=== PATIENT | female | born 1930 | race Caucasian/White ===

== ENCOUNTER 2017-04-30 09:46 | Emergency (ER) | payer OTHER, BC ==
[~2017-04-30] VITALS: Ht 162.6 cm; Wt 66.1 kg
[~2017-04-30 09:46] MED LIST: ALDACTONE25 MG PO; ALDACTONE50 MG PO; ALTACE10 MG PO; AMLODIPINE BESY10 MG PO; Aspirin Chewable PO; CATAPRES0.1 MG PO; CLONIDINE HCL0.1 MG PO; CLONIDINE HCL0.2 MG PO; FERROUS SULFAT325 MG PO; FISH OIL 1,0001 EAC7 PO; FISH OIL CONC1 EACH; FISH OIL PO; GLIPIZIDE-METF1 EAC1 PO; GLUCOVANCE 51 TABLET PO; HYDRALAZINE HCL25 MG PO; LANTUS 3 M100 UNITS/ SC; LANTUS 3 M100 UNITS1 SQ; LEXAPRO5 MG PO; LO-DOSE ASPIRIN81 M1 PO; LOVASTATIN40 MG PO; LOW DOSE ASPIRI81 M1; MAG-OX400 M1 PO; NOVOLOG PE100 UNITS/ SC; NOVOLOG PE100 UNITS/ SQ; PROTONIX40 MG PO; RAMIPRIL10 MG PO; SPIRONOLACTONE25 MG PO; SYSTANE 0.300 DROP/1; TOPROL XL100 MG PO; VITAMIN D1000 INTUN PO; VITAMIN D31000 UNIT PO; VITAMIN D400 UNI4
[2017-04-30 10:22] LABS: BASOPHIL COUNT 0.1 K/uL (0-0.1); EOSINOPHIL (%) 4.5 % (0-5); EOSINOPHIL COUNT 0.5 K/uL (0-0.3); HEMATOCRIT 40.2 % (36.0-46.0); IMMATURE GRANULOCYTE (%) 0.2 % (0.0-0.7); INSTRUMENT ABS NEUTROPHIL CT 6.4 K/uL; LYMPHOCYTE COUNT 2.1 K/uL (1.0-2.8); MCHC 32.3 G/DL (30.0-36.0); MCV 89.7 FL (83-99); MEAN PLAT.VOLUME 10.5 uM^3 (9.5-12.4); MONOCYTE (%) 9.7 % (3-12); NEUTROPHIL (%) 64.3 % (45-76); NEUTROPHIL COUNT 6.4 K/uL (1.8-6.4); PLATELET COUNT 230 K/uL (156-360); RBC DIS.WIDTH-CV 13.3 % (11.8-14.6); RBC DIS.WIDTH-SD 44.1 % (39-53); RED BLOOD COUNT 4.48 M/uL (3.80-5.20)
[2017-04-30 10:33] LABS: CHLORIDE 101 mEq/L (99-109); POTASSIUM 3.9 mEq/L (3.7-5.4); SODIUM 142 mEq/L (136-147)
[2017-04-30 10:36] LABS: GLUCOSE 113 mg/dL (70-99)
[2017-04-30 10:37] LABS: ANION GAP 9 MEQ/L (2-14)
[2017-04-30 10:38] LABS: TOTAL BILIRUBIN 0.3 mg/dL (0.0-1.0)
[2017-04-30 10:39] LABS: ALKALINE PHOSPHATASE 66 IU/L (3-129); GFR ESTIMATE (CALCULATED) 45 mL/min/
[2017-04-30 10:40] LABS: UREA NITROGEN (BUN) 17 mg/dL (9-23)
[2017-04-30 10:42] LABS: TROP-I INTERPRETATION NEGATIVE; TROPONIN-I 0.01 ng/mL (0.0-0.30)
[2017-04-30 11:10] LABS: ADD MIUA? YES; BILIRUBIN NEGATIVE; BLOOD NEGATIVE; COLOR YELLOW ((YELLOW)); GLUCOSE (STRIP) 50; KETONES NEGATIVE; LEUKOCYTES TRACE; NITRITE NEGATIVE; PROTEIN (STRIP) 30; SPECIFIC GRAVITY 1.017 (1.000-1.030); UROBILINOGEN 0.2 MG/DL (0.2-1.0)
[2017-04-30 11:22] LABS: BACTERIA NONE SEEN /HPF; EPITHELIAL CELLS RARE /HPF; HYALINE CASTS 0-5 /LPF; MUCUS TRACE /LPF; RED BLOOD CELLS 0-5 /HPF (0-5); UCUL ADDED? NO; WHITE BLOOD CELLS 0-5 /HPF (0-5)
[2017-04-30 12:38] LABS: POINT-OF-CARE METER ID UU14100415; POINT-OF-CARE USER ID STWBNM
[2017-04-30 14:26] LABS: TROP-I INTERPRETATION NEGATIVE; TROPONIN-I 0.02 ng/mL (0.0-0.30)
[2017-04-30 15:42] LABS: POINT-OF-CARE METER ID UU14100415
[2017-04-30 15:50] VITALS: BP 165/74
== END 2017-04-30 16:02 ==
LOC: EME → EDBD 09:46 → EME 09:46
PROVIDERS: Emergency Medicine
DX: R07.81 Pleurodynia (principal); R10.9 Unspecified abdominal pain; E78.5 Hyperlipidemia, unspecified; E11.9 Type 2 diabetes mellitus without complications; Z95.1 Presence of aortocoronary bypass graft; Z79.4 Long term (current) use of insulin; Z79.84 Long term (current) use of oral hypoglycemic drugs; Z87.01 Personal history of pneumonia (recurrent); Z87.81 Personal history of (healed) traumatic fracture
CPT/HCPCS: 71010; 74177; 80053; 81003; 82948; 84484; 85025; 93005; 99281; 99285; J7030

== ENCOUNTER 2018-01-31 03:45 | Emergency (ER) | payer OTHER, BC ==
[~2018-01-31] VITALS: Ht 162.6 cm; Wt 75.4 kg
[2018-01-31 07:00] VITALS: BP 141/68
== END 2018-01-31 07:18 ==
LOC: EME → EDBD 03:45 → EME 03:45
DX: S00.12XA Contusion of left eyelid and periocular area, initial encounter (principal); W18.11XA Fall from or off toilet without subsequent striking against object, initial encounter; Y92.091 Bathroom in other non-institutional residence as the place of occurrence of the external cause; Z79.82 Long term (current) use of aspirin; E11.9 Type 2 diabetes mellitus without complications; Z79.4 Long term (current) use of insulin; E78.5 Hyperlipidemia, unspecified; Z95.1 Presence of aortocoronary bypass graft; Z88.5 Allergy status to narcotic agent; Z88.2 Allergy status to sulfonamides
CPT/HCPCS: 70450; 70480; 99281; 99284